=== PATIENT | female | born 1985 ===

== ENCOUNTER 2022-06-26 14:57 | Emergency (ER) | payer OTHER ==
[~2022-06-26] VITALS: Ht 175.3 cm; Wt 113.6 kg
[2022-06-26 15:03] VITALS: TEMP 97.1
[2022-06-26 15:37] VITALS: BP 138/78; PULSE 67
== END 2022-06-26 15:37 | disposition home or self-care (01) ==
LOC: COL.ER 14:57
DX: S00.33XA Contusion of nose, initial encounter (principal); S09.93XA Unspecified injury of face, initial encounter; Z28.310 Unvaccinated for COVID-19; W22.8XXA Striking against or struck by other objects, initial encounter